=== PATIENT | female | born 1960 | race Caucasian/White ===

== ENCOUNTER 2017-08-12 13:20 | Inpatient (IN) | payer SELFPAY ==
[~2017-08-12] VITALS: Ht 144.8 cm; Wt 62.7 kg
[2017-08-12] MEDS ORDERED: FURO-152 PO (13:28)
[2017-08-12 14:49] LABS: BASOPHILS % 0.8 % (0.0-2.0); EOSINOPHILS % 1.1 % (0.0-5.0); HEMATOCRIT. 31.6 % (36.0-48.0); HEMOGLOBIN. 10.2 g/dL (12.0-16.0); LYMPHOCYTES % 7.1 % (20.0-50.0); MEAN CORPUSCULAR HEMOGLOBIN 27.2 pg (28.0-32.0); MEAN CORPUSCULAR VOLUME 84.4 fL (81.0-99.0); MEAN PLATELET VOLUME 9.3 fl (7.4-10.4); MONOCYTES % 2.7 % (2.0-8.0); NEUTROPHILS % 88.3 % (40.0-76.0); PLATELET 209 x1000/uL (130-400); RED BLOOD CELL COUNT 3.74 mill/uL (4.2-5.4); RED CELL DISTRIBUTION WIDTH 14.7 % (11.6-14.6)
[2017-08-12 14:55] LABS: CHLORIDE 112 mEq/L (98-107)
[2017-08-12 14:58] LABS: PROTHROMBIN TIME 10.3 sec (9.4-11.6)
[2017-08-12] MEDS ORDERED: AZITHROMYCIN 500 MG in DEXT 5% WATER 250 ML IV STA (16:19)
[2017-08-12] MEDS ORDERED: FUROSEMIDE 20MG/2ML VIAL IVP SCH (16:30)
[2017-08-12] MEDS ORDERED: CEFTRIAXONE 1 G PREMIX 50 ML IV ONE (16:30)
[2017-08-12 17:20] VITALS: BP 157/95
[2017-08-12 17:37] VITALS: BP 157/95
[2017-08-12] MEDS ORDERED: HYDROCODONE/ACETAMINOPHEN 5/325MG TABLET PO PRN (18:00)
[2017-08-12] MEDS ORDERED: CLONIDINE 0.1MG TABLET PO PRN (18:00)
[2017-08-12] MEDS ORDERED: ACETAMINOPHEN 325MG TABLET PO PRN (18:00)
[2017-08-12] MEDS ORDERED: DEXTROSE 50% WATER 50ML SYRINGE IV PRN (18:00)
[2017-08-12] MEDS ORDERED: HYDR-4134 PO (18:10)
[2017-08-12] MEDS ORDERED: HYDR25TA PO (18:10)
[2017-08-12] MEDS ORDERED: DILT180C69 PO (18:10)
[2017-08-12] MEDS ORDERED: DOCU-138 PO (18:10)
[2017-08-12] MEDS ORDERED: BENA20TA3 PO (18:10)
[2017-08-12] MEDS ORDERED: INSU100I28 SQ (18:10)
[2017-08-12] MEDS ORDERED: ATOR40TA70 PO (18:10)
[2017-08-12] MEDS: INSULIN LISPRO 100 UNITS/ML SUBCUT SCH ×2 (18:31→21:36)
[2017-08-12 20:00] VITALS: BP 189/97
[2017-08-12] MEDS: DILTIAZEM HCL 180MG CAPSULE CD 24HR PO SCH (20:20)
[2017-08-12] MEDS: ATORVASTATIN CALCIUM 40MG TABLET PO SCH (20:20)
[2017-08-12] MEDS: HYDRALAZINE HCL 25MG TABLET PO SCH (20:20)
[2017-08-12] MEDS: ENOXAPARIN 30MG/0.3ML SYR SUBCUT SCH (20:21)
[2017-08-12] MEDS: BLOOD SUGAR DIAGNOSTIC STRIP TEST SCH (20:21)
[2017-08-12] MEDS ORDERED: INSULIN LISPRO 100 UNITS/ML SUBCUT SCH (21:00)
[2017-08-12] MEDS: FUROSEMIDE 40MG/4ML VIAL IVP SCH (21:27)
[2017-08-12 23:34] LABS: CREATINE KINASE MB FRACTION 4.2 ng/mL (0.5-3.6)
[2017-08-13] VITALS: BP 157/78
[2017-08-13 04:00] VITALS: BP 169/81
[2017-08-13 04:16] LABS: CLARITY URINE CLEAR (CLEAR); COLOR URINE YELLOW (YELLOW); KETONES URINE NEGATIVE (NEGATIVE); LEUKOCYTE ESTERASE URINE NEGATIVE (NEGATIVE); NITRITE URINE NEGATIVE (NEGATIVE); OCCULT BLOOD URINE NEGATIVE (NEGATIVE); PH URINE 5.5 (4.5-8.0); PROTEIN URINE 4+ (NEGATIVE); SPECIFIC GRAVITY URINE 1.015 (1.005-1.030); UROBILINOGEN URINE 0.2 E.U./dL (0.2-1.0)
[2017-08-13 06:39] LABS: BASOPHILS % 1.3 % (0.0-2.0); EOSINOPHILS % 2.5 % (0.0-5.0); HEMATOCRIT. 27.9 % (36.0-48.0); HEMOGLOBIN. 9.2 g/dL (12.0-16.0); LYMPHOCYTES % 23.5 % (20.0-50.0); MEAN CORPUSCULAR HEMOGLOBIN 27.2 pg (28.0-32.0); MEAN CORPUSCULAR VOLUME 82.7 fL (81.0-99.0); MEAN PLATELET VOLUME 9.6 fl (7.4-10.4); MONOCYTES % 5.3 % (2.0-8.0); NEUTROPHILS % 67.4 % (40.0-76.0); PLATELET 208 x1000/uL (130-400); RED BLOOD CELL COUNT 3.38 mill/uL (4.2-5.4); RED CELL DISTRIBUTION WIDTH 14.5 % (11.6-14.6)
[2017-08-13] MEDS: FUROSEMIDE 40MG/4ML VIAL IVP SCH ×2 (06:43→17:58)
[2017-08-13] MEDS: BLOOD SUGAR DIAGNOSTIC STRIP TEST SCH ×4 (06:45→21:50)
[2017-08-13] MEDS: INSULIN LISPRO 100 UNITS/ML SUBCUT SCH ×4 (06:46→22:13)
[2017-08-13 08:00] VITALS: BP 187/83
[2017-08-13] MEDS: HYDRALAZINE HCL 25MG TABLET PO SCH ×3 (08:59→17:57)
[2017-08-13] MEDS: DOCUSATE SODIUM 100MG CAPSULE PO SCH ×2 (09:00→17:58)
[2017-08-13] MEDS: BENAZEPRIL 20MG TABLET PO SCH (09:00)
[2017-08-13] MEDS ORDERED: INSULIN GLARGINE UD 100 UNITS/ML SYR SUBCUT SCH (10:00)
[2017-08-13 12:00] VITALS: BP 159/70
[2017-08-13] MEDS: INSULIN GLARGINE UD 100 UNITS/ML SYR SUBCUT SCH (13:12)
[2017-08-13 16:00] VITALS: BP 147/72
[2017-08-13 16:36] LABS: CREATINE KINASE 115 IU/L (26-192)
[2017-08-13 16:37] LABS: CREATINE KINASE MB FRACTION 3.8 ng/mL (0.5-3.6)
[2017-08-13 20:00] VITALS: BP 158/80
[2017-08-13] MEDS ORDERED: CEFTRIAXONE 2 G in DEXTROSE 5% WATER 50 ML IV SCH (20:00)
[2017-08-13] MEDS ORDERED: CEFTRIAXONE 2 G PREMIX 50 ML IV SCH (20:00)
[2017-08-13] MEDS: DILTIAZEM HCL 180MG CAPSULE CD 24HR PO SCH (21:39)
[2017-08-13] MEDS: ATORVASTATIN CALCIUM 40MG TABLET PO SCH (21:39)
[2017-08-13] MEDS: ENOXAPARIN 30MG/0.3ML SYR SUBCUT SCH (21:42)
[2017-08-14] VITALS: BP 167/86
[2017-08-14 04:00] VITALS: BP 172/74
[2017-08-14] MEDS: INSULIN LISPRO 100 UNITS/ML SUBCUT SCH ×2 (06:20→12:51)
[2017-08-14] MEDS: FUROSEMIDE 40MG/4ML VIAL IVP SCH (06:20)
[2017-08-14] MEDS: BLOOD SUGAR DIAGNOSTIC STRIP TEST SCH ×2 (06:20→11:45)
[2017-08-14 08:00] VITALS: BP_SYST 140; BP_SYST 154; BP_DIAS 60; BP_DIAS 74
[2017-08-14] MEDS: BENAZEPRIL 20MG TABLET PO SCH (09:35)
[2017-08-14] MEDS: DOCUSATE SODIUM 100MG CAPSULE PO SCH (09:35)
[2017-08-14 09:36] LABS: HEPATITIS B SURFACE ANTIGEN NEGATIVE
[2017-08-14] MEDS: HYDRALAZINE HCL 25MG TABLET PO SCH (09:36)
[2017-08-14 10:03] LABS: HEPATITIS B CORE AB IGM NEGATIVE
[2017-08-14 10:05] LABS: HEPATITIS A AB IGM NEGATIVE (NEGATIVE)
[2017-08-14] MEDS: INSULIN GLARGINE UD 100 UNITS/ML SYR SUBCUT SCH (11:38)
[2017-08-14 12:00] VITALS: BP 154/74
[2017-08-14 13:18] VITALS: BP 154/74
== END 2017-08-14 14:23 | disposition home or self-care (01) | DRG 133 ==
LOC: ER 13:31 → ENRESERV 15:24 → 5WST 16:23 → EDBEDREQ 16:27
PROVIDERS: ADMIT Internal Medicine; ATTEND Internal Medicine
DX: J96.00 Acute respiratory failure, unspecified whether with hypoxia or hypercapnia (principal); J18.9 Pneumonia, unspecified organism; I13.0 Hypertensive heart and chronic kidney disease with heart failure and stage 1 through stage 4 chronic kidney disease, or unspecified chronic kidney disease; E44.0 Moderate protein-calorie malnutrition; E11.22 Type 2 diabetes mellitus with diabetic chronic kidney disease; I50.9 Heart failure, unspecified; E11.65 Type 2 diabetes mellitus with hyperglycemia; E87.5 Hyperkalemia; D64.9 Anemia, unspecified; Z68.29 Body mass index [BMI] 29.0-29.9, adult; E87.6 Hypokalemia; H54.7 Unspecified visual loss; K76.9 Liver disease, unspecified; N18.9 Chronic kidney disease, unspecified; Z79.899 Other long term (current) drug therapy; Z90.710 Acquired absence of both cervix and uterus; Z91.14 Patient's other noncompliance with medication regimen; Z91.19 Patient's noncompliance with other medical treatment and regimen; Z79.4 Long term (current) use of insulin
CPT/HCPCS: 36415; 71045; 80048; 80053; 81003; 82550; 82553; 82962; 83880; 84484; 85025; 85610; 86705; 86709; 86803; 87340; 93005; 99285; J0456; J0696; J1650; J1815; J1940; J7050; J7060

== ENCOUNTER 2019-03-30 08:53 | Inpatient (IN) | payer MEDICAID ==
[~2019-03-30] VITALS: Ht 154.9 cm; Wt 65.8 kg
[~2019-03-30 08:53] MED LIST: ATOR40TA70 PO; BENA20TA10 PO; DILT180C66 PO; DOCU-138 PO; FURO-152 PO; HYDR-4134 PO; HYDR25TA PO; INSU100I28 SQ
[2019-03-30] MEDS ORDERED: INSULIN REGULAR (HUMULIN R) 300UNITS/3ML SUBCUT ONE (09:15)
[2019-03-30 09:17] LABS: BASOPHILS % 0.7 % (0.0-2.0); EOSINOPHILS % 2.6 % (0.0-5.0); HEMATOCRIT. 35.6 % (36.0-48.0); HEMOGLOBIN. 11.6 g/dL (12.0-16.0); LYMPHOCYTES % 15.9 % (20.0-50.0); MEAN CORPUSCULAR HEMOGLOBIN 31.3 pg (28.0-32.0); MEAN CORPUSCULAR VOLUME 96.3 fL (81.0-99.0); MEAN PLATELET VOLUME 8.9 fl (7.4-10.4); MONOCYTES % 5.9 % (2.0-8.0); NEUTROPHILS % 74.9 % (40.0-76.0); PLATELET 289 x1000/uL (130-400); RED CELL DISTRIBUTION WIDTH 13.5 % (11.6-14.6)
[2019-03-30 09:23] LABS: CHLORIDE 89 mEq/L (98-107)
[2019-03-30] MEDS ORDERED: INSULIN REGULAR (DRIP) 100 UNITS in SODIUM CHLORIDE 0.9% 100 ML IV ONE (10:00)
[2019-03-30 10:09] LABS: BG BASE EXCESS 4.3 mmol/L (-2.0-2.0); BG DEOXYHEMOGLOBIN 1.4 % (0.0-5.0); BG FRACTION INSPIRED OXYGEN 32; BG HCO3 ACT 30.4 mmol/L (22.0-26.0); BG METHEMOGLOBIN 0.3 % (0.0-1.5); BG OXYGEN SATURATION 98.6 % (92.0-98.5); BG OXYHEMOGLOBIN 97.3 % (94.0-97.0); BG PH 7.377 (7.350-7.450); BG PO2 138.4 mmHg (75.0-100.0); BG SAMPLE SITE RIGHT RADIAL; BG TOTAL HEMOGLOBIN 11.3 g/dL (12.0-18.0); BG VENT MODE NASAL CANNULA
[2019-03-30] MEDS ORDERED: INSULIN REGULAR (DRIP) 100 UNITS in SODIUM CHLORIDE 0.9% 99 ML IV SCH (10:15)
[2019-03-30] MEDS ORDERED: INSULIN REGULAR (DRIP) 100 UNITS in SODIUM CHLORIDE 0.9% 99 ML IV PRN (10:15)
[2019-03-30] MEDS ORDERED: INSULIN REGULAR (DRIP) 100 UNITS in SODIUM CHLORIDE 0.9% 100 ML IV SCH (10:15)
[2019-03-30] MEDS ORDERED: ACETAMINOPHEN 325MG TABLET PO PRN (11:45)
[2019-03-30] MEDS ORDERED: GUAIFENESIN 200MG/10ML SUGAR FREE UDC PO PRN (11:45)
[2019-03-30] MEDS ORDERED: TRAMADOL 50MG TABLET PO PRN (11:45)
[2019-03-30] MEDS ORDERED: DEXTROSE 50% WATER 50ML SYRINGE IV PRN (11:45)
[2019-03-30] MEDS ORDERED: DIPHENHYDRAMINE 50MG/ML VIAL IV PRN (11:45)
[2019-03-30] MEDS ORDERED: IPRATROPIUM/ALBUTEROL 0.5-3(2.5)MG/3ML NEB NEB PRN (11:45)
[2019-03-30] MEDS ORDERED: ONDANSETRON HCL 4MG/2ML INJ IV PRN (11:45)
[2019-03-30] MEDS ORDERED: DOCUSATE SODIUM 100MG CAPSULE PO PRN (11:45)
[2019-03-30] MEDS ORDERED: MAGNESIUM/ALUMINUM HYDROXIDE/SIMETHICONE 30ML UDC PO PRN (11:45)
[2019-03-30] MEDS ORDERED: LORAZEPAM 0.5MG TABLET PO PRN (11:45)
[2019-03-30] MEDS ORDERED: CLONIDINE 0.1MG TABLET PO PRN (11:45)
[2019-03-30] MEDS: ASPIRIN 325MG EC TABLET PO SCH (12:10)
[2019-03-30] MEDS: AMLODIPINE 10MG TABLET PO SCH ×2 (12:10→15:02)
[2019-03-30] MEDS ORDERED: ENOXAPARIN 30MG/0.3ML SYR SUBCUT SCH (12:30)
[2019-03-30] MEDS: BLOOD SUGAR DIAGNOSTIC STRIP TEST SCH ×3 (12:51→21:33)
[2019-03-30 13:00] VITALS: BP 157/61
[2019-03-30 14:00] VITALS: BP 157/61
[2019-03-30] MEDS: HYDRALAZINE HCL 50MG TABLET PO SCH ×2 (15:02→21:35)
[2019-03-30] MEDS: INSULIN LISPRO 100 UNITS/ML SUBCUT SCH ×5 (15:03→21:00)
[2019-03-30] MEDS: SEVELAMER CARBONATE 800 MG TABLET PO SCH ×2 (15:13→17:55)
[2019-03-30 15:52] LABS: CREATINE KINASE MB FRACTION 1.8 ng/mL (0.5-3.6)
[2019-03-30 16:00] VITALS: BP 157/62
[2019-03-30 20:00] VITALS: BP 128/71
[2019-03-30] MEDS ORDERED: ZOLPIDEM TARTRATE 5MG TABLET PO PRN (21:00)
[2019-03-30] MEDS ORDERED: FAMOTIDINE 40MG TABLET PO SCH (21:00)
[2019-03-30] MEDS: METOPROLOL TARTRATE 25MG TABLET PO SCH (21:35)
[2019-03-30 22:00] VITALS: BP 133/61
[2019-03-30] MEDS ORDERED: INSULIN GLARGINE UD 100 UNITS/ML SYR SUBCUT SCH (22:00)
[2019-03-31] VITALS (7 sets, daily range): BP systolic 101–138; BP diastolic 41–62
[2019-03-31 01:14] LABS: CREATINE KINASE 56 IU/L (26-192)
[2019-03-31 01:15] LABS: CREATINE KINASE MB FRACTION 1.8 ng/mL (0.5-3.6)
[2019-03-31] MEDS: BLOOD SUGAR DIAGNOSTIC STRIP TEST SCH (05:36)
[2019-03-31] MEDS: HYDRALAZINE HCL 50MG TABLET PO SCH (05:42)
[2019-03-31] MEDS: INSULIN LISPRO 100 UNITS/ML SUBCUT SCH ×2 (05:51→09:19)
[2019-03-31] MEDS ORDERED: FOLIC ACID/VITAMIN B COMP W-C TABLET PO SCH (09:00)
[2019-03-31] MEDS: ASPIRIN 325MG EC TABLET PO SCH (09:12)
[2019-03-31] MEDS: SEVELAMER CARBONATE 800 MG TABLET PO SCH (09:12)
[2019-03-31] MEDS: METOPROLOL TARTRATE 25MG TABLET PO SCH (09:14)
== END 2019-03-31 11:01 | disposition home or self-care (01) | DRG 133 ==
LOC: ER 08:53 → EDBEDREQSVC 10:37 → 3WST 10:39 → EDBEDREQ 10:43 → EDBEDREQSVC 10:43 → ENRESERV 11:23 → CANRESERV 11:23 → EDBEDREQSVC 11:50 → ENRESERV 12:09
PROVIDERS: ADMIT Internal Medicine; ATTEND Internal Medicine
PROC: 5A1D70Z Performance of Urinary Filtration, Intermittent, Less than 6 Hours Per Day (ICD-10-PCS; principal; 2019-03-30)
DX: J96.01 Acute respiratory failure with hypoxia (principal); E11.00 Type 2 diabetes mellitus with hyperosmolarity without nonketotic hyperglycemic-hyperosmolar coma (NKHHC); I13.2 Hypertensive heart and chronic kidney disease with heart failure and with stage 5 chronic kidney disease, or end stage renal disease; J96.02 Acute respiratory failure with hypercapnia; E11.22 Type 2 diabetes mellitus with diabetic chronic kidney disease; N18.6 End stage renal disease; E11.65 Type 2 diabetes mellitus with hyperglycemia; D63.8 Anemia in other chronic diseases classified elsewhere; E44.1 Mild protein-calorie malnutrition; E78.00 Pure hypercholesterolemia, unspecified; E78.5 Hyperlipidemia, unspecified; E87.1 Hypo-osmolality and hyponatremia; I50.9 Heart failure, unspecified; Z99.2 Dependence on renal dialysis; Z79.82 Long term (current) use of aspirin; Z68.27 Body mass index [BMI] 27.0-27.9, adult; Z79.899 Other long term (current) drug therapy
CPT/HCPCS: 36415; 36600; 71045; 80048; 80061; 82010; 82375; 82550; 82553; 82805; 82962; 83036; 83880; 84484; 93005; 93970; 96365; 96372; 99291; J1200; J1650; J1815; J2405; J7050